=== PATIENT | female | born 1990 | race Caucasian/White ===

== ENCOUNTER 2018-04-06 15:18 | Emergency (ER) | payer MEDICAID, OTHER ==
[2018-04-06 16:11] VITALS: BP 119/67
--- NOTE | 2018-04-06 16:44 | UC ---
Throat Pain/Nasal Jewel HPI - HPI Summary HPI Summary: 27-year-old woman comes in with the chief complaint of sore throat. Some sick for about 5 days discussed some runny nose and body aches. Been having chills. Been taking any [id number] medications. Swallowing makes the pain worse not swallowing does not make the pain worse. - History of Current Complaint Chief Complaint: UCGeneralIllness Stated Complaint: SORE THROAT Time Seen by Provider: 04/06/18 16:32 Hx Last Menstrual Period: Depo-Provera Pain Intensity: 6 - Allergies/Home Medications Allergies/Adverse Reactions: Allergies Allergy/AdvReac Type Severity Reaction Status Date / Time No Known Allergies Allergy Verified 04/06/18 16:08 PMH/Surg Hx/FS Hx/Imm Hx Previously Healthy: Yes - Surgical History Surgical History: None - Family History Known Family History: Positive: Non-Contributory - Social History Alcohol Use: Occasionally Substance Use Type: Marijuana Smoking Status (MU): Former Smoker When Did the Patient Quit Smoking/Using Tobacco: ~2013 Review of Systems All Other Systems Reviewed And Are Negative: Yes Constitutional: Positive: Chills Skin: Positive: Negative Eyes: Positive: Negative ENT: Positive: Sore Throat, Nasal Discharge Respiratory: Positive: Negative Cardiovascular: Positive: Negative Gastrointestinal: Positive: Negative Motor: Positive: Negative Neurovascular: Positive: Negative Musculoskeletal: Positive: Negative Neurological: Positive: Negative Psychological: Positive: Negative Is Patient Immunocompromised?: No Physical Exam Triage Information Reviewed: Yes Appearance: No Pain Distress, Well-Nourished, Ill-Appearing - MILD Vital Signs: Initial Vital Signs Temp 97.4 F 04/06/18 16:07 Pulse 92 04/06/18 16:07 Resp 20 04/06/18 16:07 BP 119/67 04/06/18 16:07 Pulse Ox 100 04/06/18 16:07 Vital Signs Reviewed: Yes Eye Exam: Normal Eyes: Positive: Conjunctiva Clear ENT: Positive: Pharyngeal erythema, Nasal congestion, Nasal drainage, TMs normal , Tonsillar swelling - 2+ B/L Neck exam: Normal Neck: Positive: Supple Respiratory: Positive: Lungs clear, Normal breath sounds, No respiratory distress Cardiovascular: Positive: RRR Musculoskeletal Exam: Normal Musculoskeletal: Positive: Strength Intact, ROM Intact Neurological Exam: Normal Neurological: Positive: Alert, Muscle Tone Normal Psychological Exam: Normal Psychological: Positive: Age Appropriate Behavior Skin Exam: Normal Skin: Positive: Rashes Throat Pain/Nasal Course/Dx - Course Course Of Treatment: DISCUSSED VIRAL VERSES BACTERIAL INFECTION AND THE ROLE OF ANTIBIOTICS. THE PATIENT WISHES TO BE ON ANTIBIOTIC AT THIS TIME. - Differential Dx/Diagnosis Provider Diagnosis: Pharyngitis Discharge - Sign-Out/Discharge Documenting (check all that apply): Patient Departure All imaging exams completed and their final reports reviewed: No Studies - Discharge Plan Condition: Stable Disposition: HOME Prescriptions: Azithromycin TAB* [Zithromax TAB (Z-CINDY) 250 mg #6 tabs] 2 tab PO .TODAY, THEN 1 DAILY #1 cindy Patient Education Materials: Pharyngitis (ED) Referrals: Loan Marroquin MD [Primary Care Provider] - Additional Instructions: FOLLOW UP WITH YOUR DOCTOR IF NOT COMPLETELY IMPROVED. GET RECHECKED FOR ANY WORSENING OF YOUR CONDITION OR QUESTIONS OR CONCERNS. - Billing Disposition and Condition Condition: STABLE Disposition: Home
== END 2018-04-06 16:55 | disposition home or self-care (01) ==
LOC: UCCORT 15:18
DX: J02.9 Acute pharyngitis, unspecified (principal); R09.89 Other specified symptoms and signs involving the circulatory and respiratory systems; R09.81 Nasal congestion; Z87.891 Personal history of nicotine dependence
CPT/HCPCS: 87651; 99212; G0463